=== PATIENT | male | born 1995 | race Caucasian/White ===

== ENCOUNTER 2017-08-28 19:49 | Emergency (ER) | payer MEDICAID, OTHER ==
[~2017-08-28] VITALS: Ht 175.3 cm; Wt 97.5 kg
--- NOTE | 2017-08-28 20:08 | NUR ---
Pt ambulated to room with steady gait. Pt c/o right sided facial numbness with a 8/10 headache. No neuro deficits noted. Pt resting in position of comfort for self. Dr. Robb at bedside for MSE.
[2017-08-28] MEDS ORDERED: ACETAMINOPHEN ES 500 MG TABLET PO ONE (20:15)
[2017-08-28] MEDS ORDERED: IBUPROFEN 600 MG TABLET PO ONE (20:15)
--- NOTE | 2017-08-28 20:23 | NUR ---
Pt medicated for discomfort. Will monitor for effects of medication
[2017-08-28] MEDS ORDERED: ACETAMINOPHEN ES 500 MG TABLET ONE (20:36)
[2017-08-28] MEDS ORDERED: IBUPROFEN 600 MG TABLET ONE (20:36)
--- NOTE | 2017-08-28 20:46 | NUR ---
Dr Robb into re eval patient. Patient states "I feel alot better now."
[2017-08-28 20:50] VITALS: BP 134/82
--- NOTE | 2017-08-28 20:50 | NUR ---
Patient discharged to home in stable conditon. Written and verbal after care instructions given. Patient verbalizes understanding of instructions. Walked out of ER with no distress noted
== END 2017-08-28 20:51 | disposition home or self-care (01) ==
LOC: ER 19:50
DX: R51 Headache (principal)
CPT/HCPCS: A4663

== ENCOUNTER 2021-10-02 20:15 | Emergency (ER) | payer OTHER ==
[~2021-10-02] VITALS: Ht 175.3 cm; Wt 113.4 kg
[2021-10-02] MEDS ORDERED: IPRATROPIUM BROMIDE 0.5 MG/2.5 ML NEBU NEB ONE (20:30)
[2021-10-02] MEDS ORDERED: ALBUTEROL SULFATE 2.5 MG/3 ML NEBU NEB ONE (20:30)
[2021-10-02] MEDS ORDERED: diphenhydrAMINE 50 MG/1 ML VIAL IV ONE (20:30)
[2021-10-02] MEDS ORDERED: methylPREDNISolone SOD SUCC 125 MG/2 ML VIAL IV ONE (20:30)
[2021-10-02] MEDS ORDERED: FAMOTIDINE. 20 MG/2 ML VIAL IV ONE ×2 (20:30→20:47)
[2021-10-02] MEDS ORDERED: ALBUTEROL SULFATE 2.5 MG/3 ML NEBU ONE (20:43)
[2021-10-02] MEDS ORDERED: IPRATROPIUM BROMIDE 0.5 MG/2.5 ML NEBU ONE (20:43)
[2021-10-02] MEDS ORDERED: diphenhydrAMINE 50 MG/1 ML VIAL ONE (20:46)
[2021-10-02] MEDS ORDERED: methylPREDNISolone SOD SUCC 125 MG/2 ML VIAL ONE (20:46)
[2021-10-02] MEDS ORDERED: FAMO-132 PO (21:32)
[2021-10-02] MEDS ORDERED: DIPH25CA83 PO (21:32)
[2021-10-02] MEDS ORDERED: PRED50TA PO (21:32)
[2021-10-02] MEDS ORDERED: ALBU18HF2 INH (21:32)
--- NOTE | 2021-10-02 21:40 | NUR ---
IV removed. Catheter intact and site benign. Pressure and 4x4 gauze applied to site. No bleeding noted.
--- NOTE | 2021-10-02 21:50 | NUR ---
Patient discharged to home in stable condition. Written and verbal after care instructions given. Patient verbalizes understanding of instructions. Stressed follow up or return to ER for worsening s/s.
[2021-10-02 22:59] VITALS: BP 137/72
== END 2021-10-02 22:00 | disposition home or self-care (01) ==
LOC: ER 20:20
DX: T63.441A Toxic effect of venom of bees, accidental (unintentional), initial encounter (principal); R06.02 Shortness of breath; Y92.89 Other specified places as the place of occurrence of the external cause; Z86.19 Personal history of other infectious and parasitic diseases
CPT/HCPCS: 94640; 96374; 96375; 99284; J1200; J2930; J3490; A4663; J3590